=== PATIENT | female | born 1945 | race Caucasian/White ===

== ENCOUNTER 2018-06-06 10:07 | Outpatient (CLI) | payer MEDICARE ==
--- NOTE | 2018-06-06 10:43 | RAD ---
2 VIEWS CHEST: Date: 06/06/18 COMPARISON: None. HISTORY: Chronic cough. FINDINGS: Two views of the chest show normal sized cardiomediastinal silhouette. There is no evidence of consol idation, mass, or pleural effusion. The bones are unremarkable. IMPRESSION: No evidence of acute cardiopulmonary disease. POS: [id number]
== END 2018-06-06 10:08 | disposition home or self-care (01) ==
LOC: MADRAD 10:07
PROVIDERS: ATTEND Family Medicine
DX: R05 Cough (principal)
CPT/HCPCS: 71046

== ENCOUNTER 2021-07-31 11:57 | Emergency (ER) | payer MEDICARE ==
[2021-07-31 20:03] LABS: SARS-CoV-2 PCR by NAA Not Detected (NotDetected)
== END 2021-07-31 13:06 | disposition home or self-care (01) ==
LOC: MADERS 11:57
DX: J45.901 Unspecified asthma with (acute) exacerbation (principal); E03.9 Hypothyroidism, unspecified; E78.5 Hyperlipidemia, unspecified; Z20.822 Contact with and (suspected) exposure to COVID-19
CPT/HCPCS: 71046; 94640; J7620; U0003; U0005